=== PATIENT | female | born 1990 | race American Indian/Alaskan Native ===

== ENCOUNTER 2016-10-12 12:10 | Emergency (ER) | payer MEDICAID ==
--- NOTE | 2016-10-12 12:28 | Emergency Department Report ---
Chief Complaint: Urogenital-Female Stated Complaint: POSS UTI/CONSTANT URINATING Time Seen by Provider: 10/12/16 12:25 - HPI History of Present Illness: PT c/o dysuria, frequency and hematuria starting today. PT states she has a hx of UTI when she was 15, feels the same - ROS Review of Systems: - f/c - n/v - back pain - Exam Physical Exam: pt looks well, non toxic. no cva tenderness makayla abd soft and non tender MSE screening note: Focused history and physical exam performed. Due to findings the following was ordered: lab ED Disposition for MSE Condition: Stable
[2016-10-12 12:29] VITALS: BP 141/89
--- NOTE | 2016-10-12 14:15 | Emergency Department Report ---
ED Female HPI - General Chief complaint: Urogenital-Female Stated complaint: POSS UTI/CONSTANT URINATING Time Seen by Provider: 10/12/16 12:25 Source: patient Mode of arrival: Ambulatory Limitations: No Limitations - History of Present Illness Initial comments: 26 y/o F presents with dysuria for the past couple days. Pt states that she has a hx of UTI in the past and it feels similar. Pt admits to dysuria, frequency, urgency, and hematuria. Pt denies any fever, chills, nausea, vomiting, LBP, or CVAT. Pt has not tried anything for the symptoms at this time. No vaginal discharge. Pt had a hysterectomy 2 years ago. Currently sexually active, no reported concern for STD. MD Complaint: dysuria (for the past couple days) -: days(s) Location: other (with urinating) Radiation: non-radiating Severity: mild Severity scale (0 -10): 0 Improves with: other (none reported) Worsens with: other (none reported) Are you Now?: No (pt had a hysterectomy 2 years ago) Associated Symptoms: dysuria, hematuria. denies: vaginal discharge, vaginal bleeding, abdominal pain, nausea/vomiting, fever/chills - Related Data Sexually active: Yes (no concern for STD per patient) Previous Rx's Medication Instructions Recorded Last Taken Type Nitrofurantoin [place]/M-Cryst 100 mg PO Q12HR #10 capsule 10/12/16 Unknown Rx [Macrobid CAP] Allergies Allergy/AdvReac Type Severity Reaction Status Date / Time No Known Allergies Allergy Verified 10/12/16 12:29 ED Review of Systems ROS: Stated complaint: POSS UTI/CONSTANT URINATING Other details as noted in HPI Constitutional: denies: chills, fever, malaise Eyes: denies: eye pain, eye discharge, vision change ENT: denies: ear pain, throat pain Respiratory: denies: cough, shortness of breath, wheezing Cardiovascular: denies: chest pain, palpitations Endocrine: no symptoms reported Gastrointestinal: denies: abdominal pain, nausea, diarrhea Genitourinary: urgency, dysuria, frequency, hematuria. denies: discharge, abnormal menses Skin: denies: rash, lesions Neurological: denies: headache, weakness, paresthesias Psychiatric: denies: anxiety, depression ED Past Medical Hx - Past Medical History Previous Medical History?: No - Surgical History Past Surgical History?: No Additional Surgical History: hysterectomy - Social History Smoking Status: Never Smoker Substance Use Type: None - Medications Home Medications: Home Medications Medication Instructions Recorded Confirmed Last Taken Type Nitrofurantoin [place]/M-Cryst 100 mg PO Q12HR #10 capsule 10/12/16 Unknown Rx [Macrobid CAP] ED Physical Exam - General Limitations: No Limitations General appearance: alert, in no apparent distress - Head Head exam: Present: atraumatic, normocephalic - Eye Eye exam: Present: normal appearance - ENT ENT exam: Present: mucous membranes moist - Respiratory Respiratory exam: Present: normal lung sounds bilaterally. Absent: respiratory distress - Cardiovascular Cardiovascular Exam: Present: regular rate, normal rhythm. Absent: systolic murmur, diastolic murmur, rubs, gallop - GI/Abdominal GI/Abdominal exam: Present: soft (no suprapubic pain, no CVAT or low back pain) , normal bowel sounds - Back Exam Back exam: Absent: CVA tenderness (R), CVA tenderness (L) - Neurological Exam Neurological exam: Present: alert, oriented X3 - Psychiatric Psychiatric exam: Present: normal affect, normal mood - Skin Skin exam: Present: warm, dry, intact, normal color. Absent: rash ED Course Vital Signs 10/12/16 12:27 Temperature 98.9 F Pulse Rate 91 H Respiratory 16 Rate Blood Pressure 141/89 O2 Sat by Pulse 100 Oximetry ED Medical Decision Making - Medical Decision Making 26 y/o F presented with dysuria for the past couple days. UA and urine culture were conducted at the ER today. Pt is alert and oriented, no signs of resp distress. No CVAT, fever, chills, or low back pain. Pt was discharged here in stable condition. UA results were indicative of cystitis-UTI. Referrals provided for further work-up if needed. Pending urine culture. Critical care attestation.: If time is entered above; I have spent that time in minutes in the direct care of this critically ill patient, excluding procedure time. ED Disposition Clinical Impression: Cystitis Disposition: DC-01 TO HOME OR SELFCARE Is pt being admited?: No Does the pt Need Aspirin: No Condition: Good Instructions: Urinary Tract Infection in Women (ED) Additional Instructions: Please follow-up with PCP or OBGYN this week for continued or worsening symptoms. If any acute worsening such as: fever, chills, nausea, vomiting, low back pain please come back to the ER immediately. Take your prescription as directed. Prescriptions: Nitrofurantoin [place]/M-Cryst [Macrobid CAP] 100 mg PO Q12HR #10 capsule Referrals: ALLISON ARGUETA MD [Primary Care Provider] - 3-5 Days [facility] [Outside] - 3-5 Days [facility] [Outside] - 3-5 Days NILESH ULLOA MD [Referring] - 3-5 Days Forms: Work/School Release Form(ED) Time of Disposition: 15:10
[2016-10-12 14:17] LABS: Bilirubin,Urine NEG (Negative); Blood,Urine LG (Negative); Ketones,Urine NEG (Negative); Leukocyte Esterase,Urine MOD (Negative); Mucus,Urine 3+ /HPF; Nitrite,Urine NEG (Negative); Urobilinogen,Urine < 2.0 mg/dL (<2.0)
[2016-10-12 14:20] LABS: RBC,Urine > 182.0 /HPF (0.0-6.0); WBC,Urine > 182.0 /HPF (0.0-6.0)
== END 2016-10-12 15:33 | disposition home or self-care (01) ==
LOC: ED 12:10
DX: N30.90 Cystitis, unspecified without hematuria (principal)
CPT/HCPCS: 81001; 99283

== ENCOUNTER 2017-01-29 17:25 | Emergency (ER) | payer MEDICAID ==
[2017-01-29 18:25] VITALS: BP 144/73
== END 2017-01-29 23:33 | disposition left against medical advice (07) ==
LOC: ED 17:25
DX: K09.8 Other cysts of oral region, not elsewhere classified (principal); Z53.21 Procedure and treatment not carried out due to patient leaving prior to being seen by health care provider

== ENCOUNTER 2017-01-31 16:48 | Emergency (ER) | payer MEDICAID ==
[2017-01-31] MEDS ORDERED: MOTRIN PO ONE (22:43)
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
[2017-02-01 00:33] VITALS: BP 132/78
--- NOTE | 2017-02-01 11:12 | XRay Report ---
FINAL REPORT EXAM: XR HUMERUS 2+V LT HISTORY: Furniture fell onto left upper arm, brusing. TECHNIQUE: Three radiographs of the left humerus were obtained. No prior studies are available for comparison. FINDINGS: There is no fracture or dislocation. No other discrete osseous abnormality is seen. No significant soft tissue abnormality is identified. IMPRESSION: No fracture, dislocation, or other osseous abnormality.
== END 2017-01-31 23:53 | disposition home or self-care (01) ==
LOC: ED 16:48
DX: S40.022A Contusion of left upper arm, initial encounter (principal); Z90.710 Acquired absence of both cervix and uterus; L98.0 Pyogenic granuloma; W17.89XA Other fall from one level to another, initial encounter; Y93.89 Activity, other specified; Y92.89 Other specified places as the place of occurrence of the external cause; Y99.8 Other external cause status

== ENCOUNTER 2017-05-09 08:51 | Emergency (ER) | payer MEDICAID ==
[2017-05-09 09:19] VITALS: BP 148/81
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
[2017-05-09] MEDS ORDERED: NORCO 7.5/325 PO ONE (10:25)
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
== END 2017-05-09 11:01 | disposition home or self-care (01) ==
LOC: ED 08:51
DX: S00.11XA Contusion of right eyelid and periocular area, initial encounter (principal); M25.511 Pain in right shoulder; Z90.710 Acquired absence of both cervix and uterus; Y04.2XXA Assault by strike against or bumped into by another person, initial encounter; Y93.89 Activity, other specified; Y99.8 Other external cause status; Y92.009 Unspecified place in unspecified non-institutional (private) residence as the place of occurrence of the external cause
CPT/HCPCS: 70450; 70486

== ENCOUNTER 2020-07-18 01:41 | Emergency (ER) | payer MEDICAID ==
[2020-07-18 03:50] VITALS: BP 150/74
[2020-07-18] MEDS ORDERED: dexAMETHasone 20 MG/5 ML VIAL IM ONE (05:13)
[2020-07-18] MEDS ORDERED: diphenhydrAMINE 25 MG CAP PO ONE (05:15)
[2020-07-18] MEDS ORDERED: METOCLOPRAMIDE 10 MG TAB PO ONE (05:15)
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
== END 2020-07-18 06:38 | disposition home or self-care (01) ==
LOC: ED 01:41
DX: T78.40XA Allergy, unspecified, initial encounter (principal); Z90.710 Acquired absence of both cervix and uterus; Z79.1 Long term (current) use of non-steroidal anti-inflammatories (NSAID); Z79.899 Other long term (current) drug therapy; X58.XXXA Exposure to other specified factors, initial encounter
CPT/HCPCS: 96372; 99282; J1100

== ENCOUNTER 2021-11-09 06:54 | Emergency (ER) | payer MEDICAID | END 2021-11-09 15:29 | disposition left against medical advice (07) | LOC: ED 06:54 | DX: R22.31 Localized swelling, mass and lump, right upper limb (principal); Z53.21 Procedure and treatment not carried out due to patient leaving prior to being seen by health care provider ==